=== PATIENT | male | born 1960 | race Caucasian/White ===

== ENCOUNTER → 2024-06-13 06:54 | Day surgery (SDC) | payer BC, SELFPAY | LOC: CATH 06:54 | PROVIDERS: ATTENDING PHYSICIAN Internal Medicine Cardiovascular Disease; FAMILY PHYSICIAN Family Medicine; OTHER PHYSICIAN Internal Medicine Cardiovascular Disease | DX: I08.1 Rheumatic disorders of both mitral and tricuspid valves (principal); I48.91 Unspecified atrial fibrillation; I10 Essential (primary) hypertension; K21.9 Gastro-esophageal reflux disease without esophagitis; Z79.82 Long term (current) use of aspirin; Z79.01 Long term (current) use of anticoagulants | CPT/HCPCS: 93312; 93320; 93325 ==

== ENCOUNTER 2024-08-15 06:56 | Day surgery (SDC) | payer BC, SELFPAY | END 2024-08-15 09:10 | disposition home or self-care (01) | LOC: CATH 06:56 | PROVIDERS: ATTENDING PHYSICIAN Internal Medicine Cardiovascular Disease; FAMILY PHYSICIAN Family Medicine | DX: I48.91 Unspecified atrial fibrillation (principal); I10 Essential (primary) hypertension; K21.9 Gastro-esophageal reflux disease without esophagitis; Z79.01 Long term (current) use of anticoagulants | CPT/HCPCS: 93312; 93320; 93325 ==

== ENCOUNTER → 2024-10-30 09:13 | Day surgery (SDC) | payer BC, SELFPAY ==
--- NOTE | 2024-10-30 11:40 | ITS.CL.CARDI ---
Met[employer] - Cardioversion
Cardioversion
Procedure Report:
Procedure: REA-guided electrical cardioversion
Pre-operative diagnosis: Persistent atrial fibrillation
Post-operative diagnosis: Persistent atrial fibrillation status post DC cardioversion to sinus rhythm
Anesthesia: MAC
Attending Physician: Rony Friedman MD
Procedure Description: The patient was brought to the electrophysiology laboratory in the fasting state. Informed consent was obtained from the patient prior to the start of the procedure. Adherence to anticoagulation was confirmed. Electrodes were
placed on the patient and connected to an external defibrillator. Monitoring of blood pressure, ECG tracings, and pulse oximetry was initiated. The pads were applied to the patient in the anterior and posterior positions. The patient was sedated by
the anesthesiologist. A REA (reported separately) was performed prior to the cardioversion. No left atrial or left atrial appendage thrombus was seen. After the REA probe was removed, a 200 joule biphasic synchronized shock was delivered to the
patient under MAC anesthesia. Sinus rhythm was successfully restored. The patient recovered uneventfully from MAC anesthesia. There were no immediate post-procedure complications. The patient left the lab in good condition. The attending physician
was present throughout the entire procedure.
Impression: Successful REA-guided direct current cardioversion with catholic of sinus rhythm after one 200 joule biphasic synchronized shock.
== END ==
LOC: CATH 09:13
PROVIDERS: ATTENDING PHYSICIAN Internal Medicine Cardiovascular Disease; OTHER PHYSICIAN Internal Medicine Cardiovascular Disease
DX: I48.19 Other persistent atrial fibrillation (principal); I51.3 Intracardiac thrombosis, not elsewhere classified; I10 Essential (primary) hypertension; K21.9 Gastro-esophageal reflux disease without esophagitis; Z79.01 Long term (current) use of anticoagulants
CPT/HCPCS: 93312; 93320; 93325; 92960; 93005

== ENCOUNTER 2024-10-31 23:26 | Emergency (ER) | payer BC, SELFPAY ==
[2024-10-31 23:49] VITALS: BP 134/80
[2024-10-31 23:50] LABS: Glucose - Point of Care 85 mg/dl (70-99)
[2024-10-31 23:53] VITALS: BP 134/80
--- NOTE | 2024-10-31 23:55 | ED.CVA ---
History of Present Illness
General
Chief Complaint: CVA/TIA Symptoms
Source: patient and spouse ( Sharon is present at the bedside and confirms that he has facial droop, slurring and aphasia)
Time Seen by Provider: 10/31/24 23:29
Nursing documentation reviewed up to this point in time: agreed with
Onset of Stroke Symptoms
Onset of symptoms known: Yes
Date of onset of symptoms: 10/31/24
Time of onset of symptoms: 11:30
Time pt last seen normal is known: Yes
Date last time pt seen normal: 10/31/24
Time last time pt seen normal: 10:30
History of Present Illness
History of Present Illness:
Pleasant 64-year-old male brought in by EMS for strokelike symptoms. Patient was last seen normal at 1030 by his Sharon. According to Sharon by 1130 patient was having difficulty with his speech. He began to slur his speech and she noticed a
facial droop. Patient does take Pradaxa and took his last dose today. Yesterday patient had a REA cardioversion for atrial fibrillation.
Vital signs are stable. Patient not hypoxic
Nursing note reviewed. I agree with nursing documentation up to this point in time.
Home Meds and allergies reviewed.
NUMBER AND COMPLEXITY OF PROBLEMS ADDRESSED AT THE ENCOUNTER
� Chronic conditions affecting care: Atrial fibrillation on Pradaxa
� Acute Exacerbation and/or Progression of Chronic Illness: None
� Differential Diagnosis includes: CVA, TIA
AMOUNT AND/OR COMPLEXITY OF DATA TO BE REVIEWED AND ANALYZED
I performed an independent evaluation of the following and my interpretation is:
EKG:
Pulse Ox: Not Hypoxic
Highway Painter: Sinus Rhythm
CT:NAME: NENA LEMON
DATE OF EXAM: 10/31/2024
Patient No: [id number]
Physician: IVANIA
Date of : 1960
Past Medical History (entered by Technologist):
Reason For Exam (entered by Technologist): lt side weakness, facial droop
Other Notes (entered by Technologist): last seen normal 2229
Additional Information (per Vision Radiologist):
CT head without contrast
CTA head and neck with IV contrast
IMPRESSION:
Non-contrast Head:
Subtly hyperdense distal right M1 segment of the right MCA.
No acute territorial infarct, hemorrhage, mass effect, or midline shift. Mild microangiopathy.
CTA Head:
Focal occlusion of the distal M1 segment of the right MCA, which extends into the inferior division M2 segmentProximally. The distal right MCA branches are widely patent and symmetric with the left.
The bilateral DYLON and SENIOR SUSTAINABILITY ADVISOR arteries are widely patent.
CTA Neck:
Retropharyngeal course of the bilateral internal carotid arteries.
No occlusion, stenosis, or dissection.
Case discussed with Dr. Mena at 0015
X-rays:
Ultrasound:
Laboratory Studies: Normal
Other:
Review of other/old records: REA cardioversion from 10/30/2024 showed an ejection fraction of 50%. 1 synchronized cardioversion at 200 J to get patient back in sinus rhythm.
Clinical information was obtained by an independent historian:
Prescriptions/Medications Considered but not given:
Further testing considered but not performed:
RISK OF COMPLICATIONS AND/OR MORBIDITY OR MORTALITY OF PATIENT MANAGEMENT
Social determinants of health affecting care: Good Social Support
Discussion with other providers: Dr. Naqvi on behalf of Dr. Christiansen, neuro-interventionalist
Escalation of care including admission/observation vs risk of discharge considered: After being observed in the emergency department, patient is stable for transfer to [facility] for continued stroke
care
CRITICAL CARE NOTE:45
Total Time (exclusive of procedures):
Update:
Past History
Past History
ED Past Medical History: HTN and Other (Gout)
ED Past Surgical History: None
Social History
Personal: Single
Living: other (Significant other)
Employment: Not employed
Review of Systems
Review of Systems
Allergies reviewed?: Yes
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
All Other Systems: ROS reviewed and negative except as documented in HPI and ROS
Phy Exam
General Physical Exam
General Presentation: well appearing
General age: appears stated age
General Skin: warm
General Habitus: normal
General Mental: alert
Eye Exam
Eye Exam: PERRL and EOMI (Gaze palsy of left eye)
Cardiovascular Exam
Cardiovascular Exam: regular rate/rhythm
NIH Stroke Score
Level of Consciousness: 0 - Alert
LOC questions: 0-Answers both correctly
LOC Commands: 0-Performs both correctly
Best Gaze: 1-Partial gaze palsy
Visual Carmona: 1=Partial hemianopia
Facial palsy: 1=Minor paralysis
Motor - Right Arm: 0=No drift 10 seconds
Motor - Left Arm: 0=No drift 10 seconds
Motor - Right Le-No drift 5 seconds
Motor - Left Le-Drift < 5 seconds
Limb Ataxia: 0-Absent
Sensation: 0-Normal
Best Language: 1-Mild aphasia
Dysarthria: 1-Mild slurring
Extinction and Inattention: 0-No abnormality
Total Score:: 6
Scores
NIH Stroke Score
Level of Consciousness: 0 - Alert
LOC Questions: 0-Answers both correctly
LOC Commands: 0-Performs both correctly
Best Horizontal Gaze: 1-Partial gaze palsy
Visual Carmona: 1=Partial hemianopia
Facial Palsy: 1=Minor paralysis
Motor - Right Arm: 0=No drift 10 seconds
Motor - Left Arm: 0=No drift 10 seconds
Motor - Right Le-No drift 5 seconds
Motor - Left Le-Drift < 5 seconds
Limb Ataxia: 0-Absent
Sensation: 0-Normal
Best Language: 1-Mild aphasia
Dysarthria: 1-Mild slurring
Extinction and Inattention: 0-No abnormality
Total Score:: 6
Thrombolytic Contraindication
Reasons for NON-Tx with Thrombolytics ABSOLUTE Exclusions: Patient taking oral anticoagulant and last dose within 48 hours
Course
Orders/Labs/Results
Orders:
Orders
10/31/24 23:29
Type+Screen Urgent
CT HEAD STROKE ALERT W/o Cont Urgent
Comment:
Reason For Exam: left sided droop, slurring
CT HEAD/NECK ANG STROKE ALERT Urgent
Comment:
Reason For Exam: left sided droop, slurring
Bedside Glucose- Treatment ONCE
Cardiac Monitoring- Treatment ONCE
Complete Blood Count/With Diff Urgent
Comprehensive Metabolic Panel Urgent
Erythrocyte Sed Rate Urgent
PTT Urgent
Prothrombin Time Urgent
Troponin I Urgent
11/01/24 00:08
Electrocardiogram (*1) Urgent
Reason for Study: TIA/Stroke
EKG- Treatment ONCE
Vital Signs
Initial and Last Documented VS:
Initial Vital Signs
Pulse Resp Pulse Ox
74 20 99
10/31/24 23:48 10/31/24 23:48 10/31/24 23:48
Last Documented Vital Signs
Temp Pulse Resp BP Pulse Ox
97.8 F 66 22 131/74 100
10/31/24 23:49 11/01/24 00:00 11/01/24 00:00 11/01/24 00:00 11/01/24 00:00
*Pulse Oximetry
Patient hypoxic: no
*EKG
Interpreted by ED Provider?: Yes
Interpretation: normal
Comparison EKG: changes noted
Heart Rate: 62
Rate: normal
Rhythm: sinus
[place]: normal axis
Interval: normal interval
QRS Pattern: normal QRS
Ischemia: no ischemia
*Highway Painter Interpretation
Rate: normal
Interpretation: normal
Heart Rate: 80
Rhythm: sinus
*Critical Care Note
Total Time (30-74mins, 75-104mins- exclusive of procedures): 45 (Critical care statement: A total of 45 minutes of critical care time was provided for this patient. This time is separate from time utilized to perform the aforementioned documented
procedures. Aggregate critical care time includes only time during which I was engaged in work directl)
ED Attending Note
-
Portions of this chart may have been created with voice recognition software.� Occasional wrong word or��sound alike� substitutions may have occurred due to the inherent limitations of voice recognition software.
Discharge Plan
Departure
Patient Disposition: Acute Care Hospital
Date of Disposition: 11/01/24
Time of Disposition: 00:39
Discharge Problem:
Acute CVA (cerebrovascular accident), mca lesion
Prescriptions:
No Action
lisinopril 20 mg Tablet
20 mg PO DAILY
febuxostat [Uloric] 80 MG tablet
80 mg PO DAILY
acetaminophen [Tylenol] 325 mg Tablet
650 mg PO Q6HPRN PRN (Reason: mild pain )
dabigatran etexilate [Pradaxa] 75 mg Capsule
150 mg PO BID
Referrals:
UNKNOWN - PT NOT,INTERVIEWE [Family Provider] -
Hospital Transfer
Other hospital: [facility] INR suite
I certify that the patient requires transfer: Yes
Discussed case with accepting physician: Dr. Naqvi on behalf of Dr. Christiansen
Reason for transfer: higher level of care, medical necessity, availability of service and specialties available
Interventions
Interventions:
*Risk Screen - Suicide Last Done: 10/31/24 23:49
*General Assessment Last Done: 10/31/24 23:49
ED- Fall Risk Assessment Last Done: 10/31/24 23:49
*ED COVID-19 Vaccine History Last Done: 10/31/24 23:49
ED- Pulmonary Assessment Last Done: 10/31/24 23:49
ED- Neurological Assessment Last Done: 10/31/24 23:49
ED- Cardiac Assessment Last Done: 10/31/24 23:49
ED Swallowing Screen Last Done: 11/01/24 00:05
Discharge Date and Time
Print Language: PORTUGUESE
[2024-11-01] VITALS: BP 131/74
[2024-11-01 00:31] LABS: % Basophils 0.7 % (0-2); % Eosinophils 4.4 % (0-6); % Immature Granulocytes 1.3 % (0-0.5); % Lymphocytes 25.2 % (20.5-51.1); % Monocytes 9.9 % (1.7-9.3); % Neutrophils 58.5 % (42.2-75.2); Absolute Basophils 0.1 10^3/uL (0-0.2); Absolute Eosinophils 0.4 10^3/uL (0-0.7); Absolute Immature Granulocytes 0.1 10^3/uL (0-0.05); Absolute Lymphocytes 2.1 10^3/uL (1.2-3.4); Absolute Monocytes 0.8 10^3/uL (0.1-0.6); Absolute Neutrophils 4.8 10^3/uL (1.4-6.5); Hematocrit 39.7 % (39.0-52.0); Hemoglobin 13.1 g/dL (13.0-18.0); Mean Corpuscular Hgb 31.3 pg (27.0-31.0); Mean Platelet Volume 11.2 fL (7.4-10.4); Nucleated Red Blood Cells % 0 % (-); Platelet Count 147 10^3/uL (130-400); Red Blood Cell Count 4.18 10^6/uL (4.70-6.10); Red Cell Dist. Width 12.2 % (11.5-14.5); White Blood Cell Count 8.3 10^3/uL (4.8-10.8)
[2024-11-01 00:33] LABS: INR 1.07; PT 14.4 Sec (11.4-14.6)
[2024-11-01 00:34] LABS: APTT 35.1 Sec (23.4-35.0)
[2024-11-01 00:35] LABS: ALT (SGPT) 19 U/L (0-50); AST (SGOT) 23 U/L (17-59); Alkaline Phosphatase 46 U/L (38-126); Blood Urea Nitrogen 18 mg/dl (9-20); Calcium 9.2 mg/dl (8.4-10.2); Carbon Dioxide 30 mmol/L (22-30); Chloride 99 mmol/L (98-107); Glucose 99 mg/dl (70-99); Potassium 4.9 mmol/L (3.5-5.1); Sodium 136 mmol/L (135-145); Total Bilirubin 0.2 mg/dl (0.2-1.3); Total Protein 6.7 g/dl (6.3-8.2); eGFR > 60.00
[2024-11-01 00:47] LABS: Troponin I < 0.012 ng/ml
[2024-11-01 03:27] LABS: Erythrocyte Sed Rate 13 mm/hour (0-20)
== END 2024-11-01 01:20 | disposition short-term general hospital (02) ==
LOC: EMR 23:26
PROVIDERS: EMERGENCY PHYSICIAN Student in an Organized Health Care Education/Training Program
DX: I63.9 Cerebral infarction, unspecified (principal); I48.91 Unspecified atrial fibrillation; I10 Essential (primary) hypertension; Z79.01 Long term (current) use of anticoagulants
CPT/HCPCS: 99284; 70450; 70496; 70498; 80053; 82962; 84484; 85025; 85610; 85652; 85730; 86850; 86900; 86901; 93005; Q9967